=== PATIENT | male | born 1990 | race Caucasian/White ===

== ENCOUNTER 2017-07-22 23:38 | Inpatient (IN) | payer OTHER ==
[~2017-07-22] VITALS: Ht 185.4 cm; Wt 107.4 kg
[2017-07-23] VITALS (13 sets, daily range): BP systolic 127–155; BP diastolic 74–95; PULSE 72–104; TEMP 97.8–99.1
[2017-07-23 00:09] LABS: HEMATOCRIT 45.7 % (42.0-52.0); HEMOGLOBIN 15.7 g/dl (13.5-18.0); MEAN CELL VOLUME 90 fl (80.0-100.0); MEAN CORPUSCULAR HEMOGLOBIN 31 pg (27.0-31.0); MEAN CORPUSCULAR HGB CONC 34 g/dl (33.0-37.0); MEAN PLATELET VOLUME 10.7 fl (7.4-10.4); PLATELET COUNT 174 K/mm3 (130-400); RED BLOOD COUNT 5.08 M/mm3 (4.20-5.60); REDCELL DISTRIBUTION WIDTH-CV 13.1 % (11.5-14.5)
[2017-07-23 00:14] LABS: COLLECTION METHOD CLEAN CATCH
[2017-07-23 00:16] LABS: ALANINE AMINOTRANSFERASE 163 U/L (21-72); ALBUMIN 4.3 gm/dL (3.5-5.0); ALKALINE PHOSPHATASE 58 U/L (50-136); ANION GAP 14 mmol/L (7-16); AST,SGOT 69 U/L (15-37); BILIRUBIN,TOTAL 0.5 mg/dL (0.0-1.0); BLOOD UREA NITROGEN 14 mg/dL (9-20); CALCIUM 9.4 mg/dL (8.4-10.2); CARBON DIOXIDE 19 mmol/L (22-30); CHLORIDE 104 mmol/L (98-107); CREATININE, serum 0.87 mg/dL (0.66-1.25); GLUCOSE 115 mg/dL (74-106); LIPASE 77 U/L (23-300); POTASSIUM 3.6 mmol/L (3.4-5.0); SODIUM 138 mmol/L (137-145); TOTAL PROTEIN 7.1 gm/dL (6.4-8.2)
[2017-07-23 00:19] LABS: PH 6 (5-8); SQUAMOUS EPITHELIAL None Seen /hpf; URINE APPEARANCE Clear; URINE BACTERIA None Seen /hpf; URINE BILIRUBIN Negative (NEGATIVE); URINE BLOOD Negative (NEGATIVE); URINE COLOR Yellow; URINE GLUCOSE Negative (NEGATIVE); URINE KETONE Negative (NEGATIVE); URINE LEUKOCYTE ESTERASE Negative (NEGATIVE); URINE NITRATE Negative (NEGATIVE); URINE PROTEIN(semi-quant) Negative (NEGATIVE); URINE RBC 0-2 /hpf; URINE UROBILINOGEN Negative (NEGATIVE)
[2017-07-23] MEDS ORDERED: ZOLOFT 100MG100 MG PO (00:21)
[2017-07-23] MEDS ORDERED: CELEBREX 1100 MG/CAP PO (00:22)
[2017-07-23] MEDS ORDERED: NORCO 325 MG-7.1 TAB PO (00:22)
[2017-07-23] MEDS ORDERED: VALIUM 5MG T5 MG/TAB PO (00:23)
[2017-07-23 00:30] LABS: TROPONIN-I < 0.012 ng/mL (0.000-0.034)
[2017-07-23 00:31] LABS: BAND 3 % (0-10); EOSINOPHIL 3 % (0-4); LYMPHOCYTE 27 % (20.0-51.0); METAMYELOCYTE 1 % (0-0); NEUTROPHILS 61 % (42.0-75.2); PLATELET ESTIMATE NORMAL (NORMAL)
[2017-07-23 04:00] LABS: INR 0.9 (0.8-3.0); PROTHROMBIN TIME 10.1 SECONDS (9.7-12.8)
[2017-07-23 04:03] LABS: PARTIAL THROMBOPLASTIN TIME 28.5 SECONDS (26.0-37.0)
[2017-07-23 07:17] LABS: CHOLESTEROL RISK RATIO 4.5
== END 2017-07-23 17:28 | disposition home or self-care (01) | DRG 313 ==
LOC: COL.ER 23:38 → SURG 07-23 04:51
PROVIDERS: Emergency Medicine; Nurse Practitioner Family
DX: R07.89 Other chest pain (principal); F43.10 Post-traumatic stress disorder, unspecified; F41.8 Other specified anxiety disorders; F60.5 Obsessive-compulsive personality disorder; F90.9 Attention-deficit hyperactivity disorder, unspecified type; G89.4 Chronic pain syndrome; M54.5 Low back pain
CPT/HCPCS: 99223-AI; A9502; J1170; J2060; J2270; J2405; J2785; J7030; J7050; Q9967